=== PATIENT | female | born 1965 | race African-American/Black ===

== ENCOUNTER 2017-05-12 11:15 | Emergency (ER) | payer SELFPAY ==
--- NOTE | ~2017-05-12 | US85 ---
[facility] A Service of [facility] & [facility] RADIOLOGY TEXT RESULTS PATIENT: JO ANN CARRERA LOCATION: CFTX : 61 UNIT #: [id number] AGE: [address]: Bonnie Sierra APRN SEX: F ORDER DR: [id number] [facility] [address] [place], [place] [address] [id number] E MR#: [id number] Acc #: [id number] NAME: JO ANN CARRERA : 1965 SEX: F STUDY DATE/TIME: 05/12/2017 12:05 UNIT: [facility] ROOM: STUDY DESCRIPTION: [facility] Attending Physician: Bonnie Sierra A.P.R.N. Ordering Physician: Ed Doctor [id number] [facility] Primary Care Physician: Yoandy Ha M.D. MEDICAL IMAGING REPORT This report is preliminary unless electronic signature is present EXAM Unilateral right lower extremity venous Doppler, 05/12/2017 HISTORY Right calf and thigh pain for 10 days. TECHNIQUE Venous ultrasound examination of the right lower extremity was performed using grayscale, spectral Doppler and color flow Doppler imaging. FINDINGS The examination is negative. There is no evidence of right lower extremity deep venous thrombus from the groin to the lower calf. Visualized greater saphenous vein is also patent. IMPRESSION Negative examination. No evidence of right lower extremity deep venous thrombosis. Dictated by... Brandon Arreaga M.D. THIS IS AN ELECTRONICALLY VERIFIED REPORT Brandon Arreaga M.D. at 05/13/2017 10:25 AM Elida TD: 05/12/2017 17:27 JOB #: [id number] MEDICAL IMAGING REPORT Page 1 of 1 COPY
--- NOTE | ~2017-05-12 | CR253 ---
[facility] A Service of [place] & [facility] RADIOLOGY TEXT RESULTS PATIENT: JO ANN CARRERA LOCATION: CFTX : 61 UNIT #: [id number] AGE: [address]: Bonnie Sierra APRN SEX: F ORDER DR: [id number] [facility] [address] [place], [place] [address] [id number] E MR#: [id number] Acc #: [id number] NAME: JO ANN CARRERA : 1965 SEX: F STUDY DATE/TIME: 05/12/2017 11:46 UNIT: [facility] ROOM: STUDY DESCRIPTION: CR Tibia and Fibula 2 Views Rt Attending Physician: Bonnie Sierra A.P.R.N. Ordering Physician: Ed Harinder Rangel M.D. Primary Care Physician: Yoandy Ha M.D. MEDICAL IMAGING REPORT This report is preliminary unless electronic signature is present EXAM Right tibia and fibula, 05/12/2017, 1146 hours. CLINICAL HISTORY Pain and swelling of the right tibia and fibula for 1 week. No reported injury. COMPARISON None FINDINGS AP and lateral views of the tibia and fibula demonstrate mild subcutaneous edema distally. There is no fracture or bone lesion. IMPRESSION Mild subcutaneous edema distally over the lower leg. There is no bone lesion or a fracture. Dictated by... Tawanna Pena M.D. THIS IS AN ELECTRONICALLY VERIFIED REPORT Tawanna Pena M.D. at 05/13/2017 9:34 AM NBA/micheline TD: 05/12/2017 17:37 JOB #: [id number] MEDICAL IMAGING REPORT Page 1 of 1 COPY
[~2017-05-12 11:15] MED LIST: ERYTHROMYCIN O3.5 GM; ERYTHROMYCIN O3.5 GM OP; TOPROL XL PO; VICODIN PO
== END 2017-05-12 12:43 | disposition home or self-care (01) ==
LOC: CFTX 11:15 → CED 11:15 → CFTX 11:44
DX: L03.115 Cellulitis of right lower limb (principal)
CPT/HCPCS: 73590; 93971; 99284